=== PATIENT | male | born 1975 | race Caucasian/White ===

== ENCOUNTER 2018-07-28 11:29 | Emergency (ER) | payer OTHER ==
--- NOTE | 2018-07-28 13:58 | UC ---
Throat Pain/Nasal Jose HPI - HPI Summary HPI Summary: Pt presents with c/o of worsening cough, nasal congestion, ST, body aches X 3 days. - History of Current Complaint Chief Complaint: UCRespiratory Stated Complaint: ST,COUGHBODY ACHES Time Seen by Provider: 07/28/18 13:50 Hx Obtained From: Patient Onset/Duration: Gradual Onset, Lasting Days, Still Present, Worse Since - onset Severity: Moderate Pain Intensity: 7 Associated Signs & Symptoms: Positive: Nasal Discharge - Epiglottits Risk Factors Epiglottis Risk Factors: Negative - Allergies/Home Medications Allergies/Adverse Reactions: Allergies Allergy/AdvReac Type Severity Reaction Status Date / Time No Known Allergies Allergy Verified 07/28/18 12:04 Home Medications: Home Medications NK [No Home Medications Reported] 07/28/18 [History Confirmed 07/28/18] PMH/Surg Hx/FS Hx/Imm Hx Previously Healthy: Yes - Surgical History Surgical History: None - Family History Known Family History: Positive: Cardiac Disease - Social History Occupation: Employed Full-time Alcohol Use: Daily Alcohol Amount: 3-4 drinks Substance Use Type: None Smoking Status (MU): Heavy Every Day Tobacco Smoker Type: Cigarettes Amount Used/How Often: 3/4 PPD Have You Smoked in the Last Year: Yes - Immunization History Most Recent Influenza Vaccination: Not 2018 season Review of Systems Constitutional: Chills, Fatigue Skin: Negative Eyes: Negative ENT: Sore Throat, Nasal Discharge, Sinus Congestion Respiratory: Cough Cardiovascular: Negative Gastrointestinal: Negative Genitourinary: Negative Motor: Negative Neurovascular: Negative Musculoskeletal: Myalgia Neurological: Negative Psychological: Negative Is Patient Immunocompromised?: No All Other Systems Reviewed And Are Negative: Yes Physical Exam Triage Information Reviewed: Yes Appearance: Ill-Appearing Vital Signs: Initial Vital Signs Temp 98.9 F 07/28/18 11:59 Pulse 97 07/28/18 11:59 Resp 18 07/28/18 11:59 BP 113/91 07/28/18 11:59 Pulse Ox 99 07/28/18 11:59 Vital Signs Reviewed: Yes Eye Exam: Normal ENT: Positive: Nasal congestion Dental Exam: Normal Neck exam: Normal Respiratory Exam: Normal Cardiovascular Exam: Normal Musculoskeletal Exam: Normal Neurological Exam: Normal Psychological Exam: Normal Skin Exam: Normal Diagnostics - Laboratory Diagnostic Studies Completed/Ordered: rapid flu: negative Throat Pain/Nasal Course/Dx - Differential Dx/Diagnosis Differential Diagnosis/HQI/PQRI: Influenza, URI Provider Diagnoses: viral syndrome Discharge - Sign-Out/Discharge Documenting (check all that apply): Patient Departure All imaging exams completed and their final reports reviewed: No Studies - Discharge Plan Condition: Stable Disposition: HOME Patient Education Materials: Viral Syndrome (ED) Forms: *Work Release Referrals: [facility] [Outside] - If Needed No Primary Care Phys,NOPCP [Primary Care Provider] - - Billing Disposition and Condition Condition: STABLE Disposition: Home - Attestation Statements Provider Attestation: Per institutional requirements, I have reviewed the chart, however, I was not consulted specifically or made aware of this patient by the midlevel provider. I did not personally evaluate, interact with , or disposition this patient.
[2018-07-28 14:00] VITALS: BP 130/86
== END 2018-07-28 14:23 | disposition home or self-care (01) ==
LOC: UCCORT 11:29
DX: B34.9 Viral infection, unspecified (principal); F17.210 Nicotine dependence, cigarettes, uncomplicated
CPT/HCPCS: 99202; G0463

== ENCOUNTER 2018-08-01 11:02 | Emergency (ER) | payer OTHER ==
[2018-08-01 11:47] VITALS: BP 130/87
--- NOTE | 2018-08-01 13:19 | UC ---
Throat Pain/Nasal Jose HPI - HPI Summary HPI Summary: 43 year old male presents with 1 week history of URI symptoms. He was evaluated on 07/28/2018 at this facility and diagnosed with viral URI. He states his symptoms are improving. He has not had any fever in 3 days. He was absent from work again today and is requesting a updated work note. - History of Current Complaint Chief Complaint: UCRespiratory Stated Complaint: FATIGUE - RECHECK Time Seen by Provider: 08/01/18 12:59 Hx Obtained From: Patient Onset/Duration: Gradual Onset, Lasting Days Pain Intensity: 4 Cough: None Associated Signs & Symptoms: Positive: Sinus Discomfort, Nasal Discharge. Negative: Dysphagia, Hoarseness, Fever, Vomiting, Rash - Allergies/Home Medications Allergies/Adverse Reactions: Allergies Allergy/AdvReac Type Severity Reaction Status Date / Time No Known Allergies Allergy Verified 08/01/18 11:40 PMH/Surg Hx/FS Hx/Imm Hx Previously Healthy: Yes - Denies significant PMH - Surgical History Surgical History: None - Family History Known Family History: Positive: Cardiac Disease - Social History Occupation: Employed Full-time Lives: With Family Alcohol Use: Weekly Alcohol Amount: 4 x WEEK Substance Use Type: None Smoking Status (MU): Heavy Every Day Tobacco Smoker Type: Cigarettes Amount Used/How Often: 3/4 PPD Have You Smoked in the Last Year: Yes Household Exposure Type: Cigarettes - Immunization History Most Recent Influenza Vaccination: Not 2018 Review of Systems Constitutional: Negative Skin: Negative Eyes: Negative ENT: Sore Throat, Nasal Discharge Respiratory: Negative Cardiovascular: Negative Gastrointestinal: Negative Is Patient Immunocompromised?: No All Other Systems Reviewed And Are Negative: Yes Physical Exam Triage Information Reviewed: Yes Appearance: Well-Appearing, No Pain Distress, Well-Nourished Vital Signs: Initial Vital Signs Temp 96.8 F 08/01/18 11:41 Pulse 85 08/01/18 11:41 Resp 16 08/01/18 11:41 BP 130/87 08/01/18 11:41 Pulse Ox 99 08/01/18 11:41 Vital Signs Reviewed: Yes Eyes: Positive: Conjunctiva Clear. Negative: Discharge ENT: Positive: Pharynx normal, Nasal congestion, TMs normal, Uvula midline. Negative: Nasal drainage, Sinus tenderness Neck: Positive: Supple, Nontender, No Lymphadenopathy Respiratory: Positive: Chest non-tender, Lungs clear, Normal breath sounds, No respiratory distress Cardiovascular: Positive: RRR, No Murmur Neurological: Positive: Alert Skin Exam: Normal Throat Pain/Nasal Course/Dx - Course Course Of Treatment: Patient with 1 week history of viral URI symptoms. States symptoms are improving but is requesting an updated work note as he missed additional days of work since his initial evaluation. Note provided. - Differential Dx/Diagnosis Provider Diagnoses: Viral URI Discharge - Sign-Out/Discharge Documenting (check all that apply): Patient Departure All imaging exams completed and their final reports reviewed: No Studies - Discharge Plan Condition: Stable Disposition: HOME Patient Education Materials: Upper Respiratory Infection (ED) Forms: *Work Release Referrals: No Primary Care Phys,NOPCP [Primary Care Provider] - [facility] [Outside] - If Needed Additional Instructions: Stay well hydrated. May continue to use acetaminophen (Tylenol) or ibuprofen (Advil, Motrin) according to directions for any aches, pain, or fever. Your blood pressure was slightly elevated in the clinic today. It is recommended that you establish with a primary care provider and have this rechecked. - Billing Disposition and Condition Condition: STABLE Disposition: Home
== END 2018-08-01 13:34 | disposition home or self-care (01) ==
LOC: UCCORT 11:02
DX: Z51.89 Encounter for other specified aftercare (principal); J06.9 Acute upper respiratory infection, unspecified; F17.210 Nicotine dependence, cigarettes, uncomplicated
CPT/HCPCS: 99211; G0463

== ENCOUNTER 2018-10-10 10:07 | Emergency (ER) | payer OTHER ==
[2018-10-10 10:17] VITALS: BP 149/83
--- NOTE | 2018-10-10 10:43 | ED ---
Throat Pain/Nasal Congestion - HPI Summary HPI Summary: 43 yr old male with the complaint of sinus pressure, pain, post nasal drip. He has been ill for about 4-5 days. Pain in the left frontal and maxillary sinus area. No fever. Pain is 7/10 and non radiating. The patient has not had dizziness or vertigo. - History of Current Complaint Chief Complaint: UCGeneralIllness Time Seen by Provider: 10/10/18 10:31 - Allergies/Home Medications Allergies/Adverse Reactions: Allergies Allergy/AdvReac Type Severity Reaction Status Date / Time No Known Allergies Allergy Verified 10/10/18 10:15 PMH/Surg Hx/FS Hx/Imm Hx Infectious Disease History: Yes Infectious Disease History: Reports: Hx Shingles - 2014 Denies: Traveled Outside the [place] in Last 30 Days - Family History Known Family History: Positive: Cardiac Disease - Social History Occupation: Employed Full-time Alcohol Use: Weekly Alcohol Amount: 4 x WEEK Substance Use Type: Reports: None Smoking Status (MU): Heavy Every Day Tobacco Smoker Type: Cigarettes Amount Used/How Often: 3/4 PPD Have You Smoked in the Last Year: Yes Review of Systems Constitutional: Negative Positive: Sore Throat, Ear Ache, Nasal Discharge Positive: Cough All Other Systems Reviewed And Are Negative: Yes Physical Exam Triage Information Reviewed: Yes Vital Signs On Initial Exam: Initial Vitals Temp Pulse Resp BP Pulse Ox 98.6 F 98 21 149/83 97 10/10/18 10:14 10/10/18 10:14 10/10/18 10:14 10/10/18 10:14 10/10/18 10:14 Vital Signs Reviewed: Yes Appearance: Positive: Well-Appearing, No Pain Distress Skin: Positive: Warm, Skin Color Reflects Adequate Perfusion Head/Face: Positive: Normal Head/Face Inspection Eyes: Positive: EOMI, CORTNEY ENT: Positive: Pharyngeal erythema, Nasal congestion, Nasal drainage, TMs normal - bilateral retraction of the TMs, Sinus tenderness Neck: Positive: Nontender Respiratory/Lung Sounds: Positive: Clear to Auscultation, Breath Sounds Present Cardiovascular: Positive: RRR. Negative: Murmur Abdomen Description: Positive: Nontender Musculoskeletal: Positive: Strength/ROM Intact Neurological: Positive: Sensory/Motor Intact, Alert, Oriented to Person Place, Time, CN Intact II-III, Normal Gait, Speech Normal Psychiatric: Positive: Normal - Mera Coma Scale Best Eye Response: 4 - Spontaneous Best Motor Response: 6 - Obeys Commands Best Verbal Response: 5 - Oriented Coma Scale Total: 15 Diagnostics - Vital Signs Vital Signs Temp Pulse Resp BP Pulse Ox 10/10/18 10:14 98.6 F 98 21 149/83 97 - Laboratory Lab Statement: Any lab studies that have been ordered have been reviewed, and results considered in the medical decision making process. EENT Course/Dx - Course Course Of Treatment: 43 yr old male with sinusitis. Rx with Augmentin. - Diagnoses Provider Diagnoses: Sinusitis, Hypertension Discharge - Sign-Out/Discharge Documenting (check all that apply): Patient Departure All imaging exams completed and their final reports reviewed: No Studies - Discharge Plan Condition: Good Disposition: HOME Prescriptions: Amoxicillin/Clavulanate TAB* [Augmentin TAB 875*] 875 mg PO BID #20 tab Patient Education Materials: Sinusitis (ED) Referrals: No Primary Care Phys,NOPCP [Primary Care Provider] - [facility] [place] [facility] [Outside] - 2 Days Additional Instructions: You need to establish a primary care physician and have your blood pressure followed and rechecked. - Billing Disposition and Condition Condition: GOOD Disposition: Home
== END 2018-10-10 10:50 | disposition home or self-care (01) ==
LOC: UCCORT 10:07
DX: I10 Essential (primary) hypertension (principal); J32.9 Chronic sinusitis, unspecified; F17.210 Nicotine dependence, cigarettes, uncomplicated
CPT/HCPCS: 99212; G0463

== ENCOUNTER 2019-12-27 13:29 | Emergency (ER) | payer SELFPAY ==
--- NOTE | 2019-12-27 14:02 | UC ---
Respiratory Complaint HPI - HPI Summary HPI Summary: 44 y/o male presents to the urgent care c/o mild nasal congestion and mild clear PND and mild intermittent dry cough that started 1 week ago and is now resolving. Pt reports he visited his children in [place], [place] from 12/09 to 12/16/2019 and 2 days after he returned he had a slight URI which is resolving by now. He called in sick yesterday to rest "at the tailend of his cold symptoms". He works in [employer] and this morning his co-worker contacted his boss w/ concerns about Gasca Virus. His boss called him and requested a medical clearance to return to work and stating he didn't need to be tested for Gasca virus. He called the health Department and was told he doesn't meet the criteria to be tested for Gasca virus. However he wants to return to work and he is requesting a medical clearance. He stays he feels fine, just w/ mild nasal congestion. He states his children are fine and [place] case appeared in [facility]. Pt denies fever, SOB, dizziness, chest pain, CRANDALL, myalgias, fatigue, abdominal pain, N/V/D, Hx of travel outside the country in the past month. - History of Current Complaint Stated Complaint: CONGESTION, COUGH Time Seen by Provider: 12/27/19 14:00 Hx Obtained From: Patient Onset/Duration: Gradual Onset, Lasting Weeks - 1 week of mild nasal congestion w / clear nasal discharge and dry cough, Resolved - resolving today Timing: Intermittent Episodes Severity Initially: Mild Severity Currently: Mild Pain Intensity: 0 Pain Scale Used: 0-10 Numeric Character: Cough: Nonproductive - resolving today Associated Signs And Symptoms: Positive: URI, Nasal Congestion - clear nasal discharge. Negative: Fever, Chills, Wheezing, Dizziness - Risk Factors Pulmonary Embolism Risk Factors: Negative Cardiac Risk Factors: Negative Pseudomonas Risk Factors: Negative Tuberculosis Risk Factors: Negative - Allergies/Home Medications Allergies/Adverse Reactions: Allergies Allergy/AdvReac Type Severity Reaction Status Date / Time No Known Allergies Allergy Verified 12/27/19 14:07 Home Medications: Home Medications NK [No Home Medications Reported] 12/27/19 [History Confirmed 12/27/19] PMH/Surg Hx/FS Hx/Imm Hx Previously Healthy: Yes - Pt denies PMHX - Surgical History Surgical History: None - Family History Known Family History: Positive: Cardiac Disease - Social History Occupation: Employed Full-time Lives: With Family Alcohol Use: Weekly Alcohol Amount: 4 x WEEK Substance Use Type: None Smoking Status (MU): Heavy Every Day Tobacco Smoker Type: Cigarettes Amount Used/How Often: 3/4 PPD Have You Smoked in the Last Year: Yes Household Exposure Type: Cigarettes - Immunization History Most Recent Influenza Vaccination: Not 2018 season Review of Systems All Other Systems Reviewed And Are Negative: Yes Constitutional: Positive: Negative Skin: Positive: Negative Eyes: Positive: Negative ENT: Positive: Nasal Discharge - clear, Other - mild PND Respiratory: Positive: Cough - dry midl cough resolving today Cardiovascular: Positive: Negative Gastrointestinal: Positive: Negative Genitourinary: Positive: Negative Motor: Positive: Negative Neurovascular: Positive: Negative Musculoskeletal: Positive: Negative Neurological/Mental Status: Positive: Negative Psychological: Positive: Negative Is Patient Immunocompromised?: No Physical Exam - Summary Physical Exam Summary: VITAL SIGNS: Reviewed. GENERAL: Patient is a well developed and nourished male who is sitting comfortably in the examining table. Patient is not in any acute respiratory distress. HEAD AND FACE: No signs of trauma. No ecchymosis, hematomas or skull depressions. No sinus tenderness. EYES: PERRLA, EOMI x 2, No injected conjunctiva, no nystagmus. No photophobia. EARS: Hearing grossly intact. Ear canals and tympanic membranes are within normal limits. MOUTH: pharynx with no erythema, no exudates, No B/L tonsillar enlargement , no exudate. Uvula in midline. edematous nasal mucosa w/ mild clear nasal discharge, clear PND NECK: Supple, trachea is midline, Positive anterior cervical lymphadenopathy, no JVD, no carotid bruit, no c-spine tenderness, neck with full ROM. No meningeal signs, no Kernig's or brudzinskis signs. CHEST: Symmetric, no tenderness at palpation LUNGS: Clear to auscultation bilaterally. No wheezing or crackles. CVS: Regular rate and rhythm, S1 and S2 present, no murmurs or gallops appreciated. ABDOMEN: Soft, non-tender. No signs of distention. No rebound no guarding, and no masses palpated. Bowel sounds are normal. EXTREMITIES: FROM in all major joints, no edema, no cyanosis or clubbing. NEURO: Alert and oriented x 3. No acute neurological deficits. Pt follows commands. SKIN: Dry and warm Triage Information Reviewed: Yes Respiratory Course/Dx - Course Course Of Treatment: 44 y/o male presents to the urgent care c/o mild nasal congestion and mild clear PND and mild intermittent dry cough that started 1 week ago and is now resolving. Pt reports he visited his children in [place], [place] from 12/09 to 12/16/2019 and 2 days after he returned he had a slight URI which is resolving by now. He called in sick yesterday to rest "at the tailend of his cold symptoms". He works in [employer] and this morning his co-worker contacted his boss w/ concerns about Gasca Virus. His boss called him and requested a medical clearance to return to work and stating he didn't need to be tested for Gasca virus. He called the health Department and was told he doesn't meet the criteria to be tested for Gasca virus. However he wants to return to work and he is requesting a medical clearance. He stays he feels fine, just w/ mild nasal congestion. He states his children are fine and the [place] the [place] virus case appeared in [facility]. Pt denies fever, SOB, dizziness, chest pain, CRANDALL, myalgias, fatigue, abdominal pain, N/V/D, Hx of travel outside the country in the past month. Hx obtained. Pt is hemodynamically stable, A&OX3,VS: WNL. Pt w/ mild URI on examination. Rapid influenza A&B: negative. Charge Nurse Lis spoke to Ceasar Cardona, In[facility] w/ Pt symptoms and requests. She states she contacted the [facility] department and was told they already spoke to the patient and [facility] also states he doesn't meet the criteria to be tested for CoronaVirus. She recommended evaluating patient as per routine. At this moment pt is hemodynamically stable, no fever and VS: WNL, jus w/ mild URI which is now resolving. Pt has not been in contact w/ someone w/ confirm COVID-19 w/in the past 14 days of symptoms onset and there is not Hx of travel from the affected geographic areas as per CDC. Pt advised to take ibuprofen PO or Tylenol if he develops any pain. Increase hydration and boost his immune system by eating well, taking Vitamin C and avoiding strenuous exercise. At this moment Pt is cleared to return to work. Pt given letter. D/ C instructions explained. Pt understood and agreed w/ plan of care. - Differential Dx/Diagnosis Differential Diagnosis/HQI/PQRI: Asthma, Bronchitis, Influenza, Laryngitis, Lower Resp Infection, Sinusitis Provider Diagnosis: Upper respiratory infection Discharge ED - Sign-Out/Discharge Documenting (check all that apply): Patient Departure - D/C home All imaging exams completed and their final reports reviewed: No Studies - Discharge Plan Condition: Stable Disposition: HOME Patient Education Materials: Upper Respiratory Infection (ED) Forms: *Work Release Referrals: [facility] [place] [Outside] - If Needed Additional Instructions: 1-Rapid influenza A&B: negative 2-Please take Tylenol PO q6-8hrs prn as instructed after meals iuf you develop CRANDALL or sore throat. Increase fluid intake, eat well, rest and avoid strenuous exercise, Usae saline drops to clear your sinuses 3-If symptoms do not improve please f/u w/ your PCP for further management. 4- AT this moment you don't meet the criteria to be tested for Gasca Virus. - Billing Disposition and Condition Condition: STABLE Disposition: Home
[2019-12-27 14:13] VITALS: BP 128/85
[2019-12-27 14:44] LABS: Influenza A Molecular Negative (Negative); Influenza B Molecular Negative (Negative)
== END 2019-12-27 14:54 | disposition home or self-care (01) ==
LOC: UCCORT 13:29
DX: J06.9 Acute upper respiratory infection, unspecified (principal); R05 Cough; F17.210 Nicotine dependence, cigarettes, uncomplicated
CPT/HCPCS: 99211; G0463